=== PATIENT | female | born 1965 | race American Indian/Alaskan Native ===

== ENCOUNTER 2022-07-28 16:55 | Emergency (ER) | payer BC, OTHER ==
[~2022-07-28] VITALS: Ht 162.6 cm; Wt 70.5 kg
[~2022-07-28 16:55] MED LIST: CLOB10TA PO; HYDR-4383 PO; LACO100T2 PO; PANT-47 PO; QUET-1 PO; SERT50TA PO; SYN0.0125T PO; TOP100T PO; TOPI50TA24 PO
[2022-07-28 17:46] LABS: BASOPHILS % (AUTO) 0.1 % (0-1); EOSINOPHILS % (AUTO) 0 % (0-6); HEMATOCRIT 34.1 % (35.0-45.0); HEMOGLOBIN 11.4 g/dl (12.0-16.0); LYMPHOCYTES # (AUTO) 1.1 X10'3 (1.1-4.8); LYMPHOCYTES % (AUTO) 21.6 % (21-51); MEAN CORPUSCULAR HEMOGLOBIN 30.3 PG (27.0-31.0); MEAN CORPUSCULAR HGB CONC 33.3 g/dL (33.0-36.5); MEAN PLATELET VOLUME 9.4 FL (7.4-10.4); MONOCYTES # (AUTO) 0.4 X10'3 (0-0.9); MONOCYTES % (AUTO) 7.6 % (2-12); NEUTROPHILS # (AUTO) 3.7 X10'3 (1.8-7.7); NEUTROPHILS % (AUTO) 70.7 % (42-75); PLATELET COUNT 165 X10'3 (140-440); RED BLOOD COUNT 3.75 X10'6 (4.20-5.60); RED CELL DISTRIBUTION WIDTH 13.5 % (11.5-14.5); WHITE BLOOD COUNT 5.3 X10'3 (4.5-11.0)
[2022-07-28 17:56] LABS: ALANINE AMINOTRANSFERASE 25 U/L (12-78); ALBUMIN 3.8 G/DL (3.4-5.0); ALBUMIN/GLOBULIN RATIO 1.3 (1.1-1.5); ALKALINE PHOSPHATASE 115 IU/L (46-116); ANION GAP 8 (8-16); ASPARTATE AMINO TRANSFERASE 16 U/L (10-37); BILIRUBIN,TOTAL 0.2 MG/DL (0.1-1.0); BLOOD UREA NITROGEN 20 MG/DL (7-18); BUN/CREATININE RATIO 15.2 (6.6-38.0); CHLORIDE 106 MMOL/L (99-107); CREATININE 1.32 MG/DL (0.40-0.90); GLUCOSE 416 MG/DL (70-104); POTASSIUM 4.9 MMOL/L (3.5-5.1); SODIUM 139 MMOL/L (135-145); TOTAL CARBON DIOXIDE 25.2 MMOL/L (24-32); TOTAL PROTEIN 6.7 G/DL (6.4-8.2); eGFR 41 ML/MIN
[2022-07-28] MEDS ORDERED: HYDROcodone/acetaminophen 10/325mg tab PO ONE (19:05)
[2022-07-28] MEDS ORDERED: insulin Lispro (HumaLOG) vial - multi-dose SQ STA (19:17)
[2022-07-28] MEDS ORDERED: insulin regular, human 10 units/0.1 ml syringe SQ ONE (19:25)
[2022-07-28 19:35] VITALS: BP 117/71
== END 2022-07-28 19:41 | disposition home or self-care (01) ==
LOC: ER 16:57
DX: R56.9 Unspecified convulsions (principal); G43.909 Migraine, unspecified, not intractable, without status migrainosus; R07.89 Other chest pain; E11.42 Type 2 diabetes mellitus with diabetic polyneuropathy; E78.00 Pure hypercholesterolemia, unspecified; K21.9 Gastro-esophageal reflux disease without esophagitis; E03.9 Hypothyroidism, unspecified; Z98.890 Other specified postprocedural states; Z79.899 Other long term (current) drug therapy
CPT/HCPCS: 36415; 70450; 71045; 72125; 80053; 85025; 93005; 96372; 99285; J1815

== ENCOUNTER 2023-01-22 21:43 | Inpatient (IN) | payer BC, OTHER ==
[~2023-01-22] VITALS: Ht 162.6 cm; Wt 69.0 kg
[~2023-01-22 21:43] MED LIST changes: +TOPI-253 PO; -TOPI50TA24 PO
[2023-01-22 22:07] LABS: BASOPHILS % (AUTO) 0.1 % (0-1); EOSINOPHILS % (AUTO) 0 % (0-6); HEMATOCRIT 36.1 % (35.0-45.0); HEMOGLOBIN 12.2 g/dl (12.0-16.0); LYMPHOCYTES # (AUTO) 1.3 X10'3 (1.1-4.8); LYMPHOCYTES % (AUTO) 25.5 % (21-51); MEAN CORPUSCULAR HEMOGLOBIN 29.6 PG (27.0-31.0); MEAN CORPUSCULAR HGB CONC 33.7 g/dL (33.0-36.5); MEAN CORPUSCULAR VOLUME 87.9 FL (78-98); MEAN PLATELET VOLUME 8.7 FL (7.4-10.4); MONOCYTES # (AUTO) 0.4 X10'3 (0-0.9); MONOCYTES % (AUTO) 7.3 % (2-12); NEUTROPHILS # (AUTO) 3.5 X10'3 (1.8-7.7); NEUTROPHILS % (AUTO) 67.1 % (42-75); PLATELET COUNT 198 X10'3 (140-440); RED BLOOD COUNT 4.11 X10'6 (4.20-5.60); RED CELL DISTRIBUTION WIDTH 13.9 % (11.5-14.5); WHITE BLOOD COUNT 5.2 X10'3 (4.5-11.0)
[2023-01-22 22:16] LABS: ALANINE AMINOTRANSFERASE 31 U/L (12-78); ALBUMIN 4.1 G/DL (3.4-5.0); ALBUMIN/GLOBULIN RATIO 1.3 (1.1-1.5); ALKALINE PHOSPHATASE 112 IU/L (46-116); ANION GAP 11 (8-16); ASPARTATE AMINO TRANSFERASE 23 U/L (10-37); BILIRUBIN,TOTAL 0.1 MG/DL (0.1-1.0); BLOOD UREA NITROGEN 22 MG/DL (7-18); BUN/CREATININE RATIO 15.9 (10.0-20.0); CALCIUM 9.5 MG/DL (8.5-10.1); CHLORIDE 109 MMOL/L (99-107); CREATININE 1.38 MG/DL (0.40-0.90); GLUCOSE 177 MG/DL (70-104); POTASSIUM 4.4 MMOL/L (3.5-5.1); SODIUM 144 MMOL/L (135-145); TOTAL CARBON DIOXIDE 23.8 MMOL/L (24-32); TOTAL PROTEIN 7.2 G/DL (6.4-8.2); eGFR 39 ML/MIN
[2023-01-23] MEDS ORDERED: aspirin 325mg tablet PO ONE (02:15)
[2023-01-23] MEDS ORDERED: CYAN250010 PO (03:17)
[2023-01-23] MEDS ORDERED: ATOR10TA87 PO (03:17)
[2023-01-23] MEDS ORDERED: ACET-1025 PO (03:17)
[2023-01-23] MEDS ORDERED: LEVO100T PO (03:17)
[2023-01-23] MEDS ORDERED: TRAZ300T2 PO (03:17)
[2023-01-23] MEDS ORDERED: TEMA30CA5 PO (03:17)
[2023-01-23] MEDS ORDERED: CHOL20004 PO (03:17)
[2023-01-23] MEDS ORDERED: LACT1CAP74 PO (03:17)
[2023-01-23] MEDS ORDERED: EMPA10TA PO (03:17)
[2023-01-23] MEDS ORDERED: LAMO100T2 PO (03:17)
[2023-01-23] MEDS ORDERED: LANTUS SQ ×2 (03:42)
[2023-01-23] MEDS ORDERED: SEMA0.258 IM (03:42)
[2023-01-23] MEDS ORDERED: acetaminophen 325mg tablet PO PRN ×2 (04:20)
[2023-01-23] MEDS ORDERED: bisacodyl 10mg suppository rectal RC PRN (04:20)
[2023-01-23] MEDS ORDERED: acetaminophen 650mg rectal suppository RC PRN (04:20)
[2023-01-23] MEDS ORDERED: magnesium hydroxide 30ml (MOM) UD suspension PO PRN (04:20)
[2023-01-23] MEDS ORDERED: diphenhydrAMINE 50 mg/ml inj IV PRN (04:20)
[2023-01-23] MEDS ORDERED: diphenhydrAMINE 25mg capsule PO PRN (04:20)
[2023-01-23] MEDS ORDERED: ondansetron/PF 4mg/2ml inj IV PRN (04:20)
[2023-01-23] MEDS ORDERED: ondansetron 4mg rapidly disintigrating tab PO PRN (04:20)
[2023-01-23] MEDS ORDERED: mag hydrox/Alum hydrox/simeth 30ml oral suspension PO PRN (04:20)
[2023-01-23] MEDS ORDERED: morphine 2 MG/ML inj. syringe IV PRN (04:20)
[2023-01-23] MEDS ORDERED: ringers solution, lacted 1,000 ML IV ONE (04:25)
[2023-01-23] MEDS ORDERED: heparin 10,000 units/1 ML INJ IV ONE (04:25)
[2023-01-23] MEDS ORDERED: heparin 10,000 units/1 ML INJ IV PRN (04:25)
[2023-01-23] MEDS ORDERED: heparin 25,000 UNIT/250ml bag 250 ML IV PRN (04:25)
[2023-01-23] MEDS ORDERED: LORazepam 2 mg/ml vial IV ONE (05:45)
[2023-01-23] MEDS ORDERED: morphine 2 MG/ML inj. syringe IV ONE (05:45)
[2023-01-23 06:23] LABS: APTT 26 SECONDS (22-32); D-DIMER 1.42 MG/L FEU (0-0.50)
[2023-01-23 06:34] LABS: BASOPHILS % (AUTO) 0 % (0-1); EOSINOPHILS % (AUTO) 0 % (0-6); HEMATOCRIT 32.3 % (35.0-45.0); HEMOGLOBIN 10.9 g/dl (12.0-16.0); LYMPHOCYTES # (AUTO) 1.6 X10'3 (1.1-4.8); LYMPHOCYTES % (AUTO) 31.8 % (21-51); MEAN CORPUSCULAR HEMOGLOBIN 29.5 PG (27.0-31.0); MEAN CORPUSCULAR HGB CONC 33.7 g/dL (33.0-36.5); MEAN CORPUSCULAR VOLUME 87.6 FL (78-98); MEAN PLATELET VOLUME 8.7 FL (7.4-10.4); MONOCYTES # (AUTO) 0.4 X10'3 (0-0.9); MONOCYTES % (AUTO) 8.7 % (2-12); NEUTROPHILS # (AUTO) 2.9 X10'3 (1.8-7.7); NEUTROPHILS % (AUTO) 59.5 % (42-75); PLATELET COUNT 174 X10'3 (140-440); RED BLOOD COUNT 3.69 X10'6 (4.20-5.60); RED CELL DISTRIBUTION WIDTH 13.7 % (11.5-14.5); WHITE BLOOD COUNT 4.9 X10'3 (4.5-11.0)
[2023-01-23 06:35] LABS: MAGNESIUM 1.9 MG/DL (1.5-2.4); PHOSPHORUS 4.1 MG/DL (2.3-4.5)
[2023-01-23 07:01] LABS: HEMOGLOBIN A1C 7.1 % (4.5-6.2)
[2023-01-23] MEDS ORDERED: pantoprazole 40mg Tablet.DR PO SCH (07:30)
[2023-01-23] MEDS ORDERED: docusate sod 100mg capsule PO SCH (08:00)
[2023-01-23 08:43] VITALS: BP 121/69; PULSE 55; RESP 15; TEMP 98.2; O2SAT 100
[2023-01-23 09:30] VITALS: RESP 14; O2SAT 100
[2023-01-23] MEDS: aspirin 81mg, enteric-coated 1 TAB TABLET.DR PO SCH (10:08)
[2023-01-23] MEDS: normal saline 1000ml 1,000 ML IV SCH ×2 (10:09→14:20)
[2023-01-23] MEDS: HYDROcodone/acetaminophen 5mg/325mg tablet PO PRN ×2 (11:34→20:47)
[2023-01-23] MEDS ORDERED: glucagon, human recombinant 1mg kit SUBCUT PRN (11:45)
[2023-01-23] MEDS ORDERED: MESSAGE TO PHARMACY PO ONE (11:45)
[2023-01-23] MEDS ORDERED: DEXTROSE 15 GM of carb/4 tabs (each vial/BOTTLE has 4 tablets) PO PRN ×2 (11:45)
[2023-01-23] MEDS ORDERED: insulin Lispro (HumaLOG) vial - multi-dose SQ SCH (11:45)
[2023-01-23] MEDS ORDERED: dextrose 50%-water 50ml dispensing syringe IV PRN ×2 (11:45)
[2023-01-23 11:58] VITALS: BP 105/70; PULSE 55; RESP 10; TEMP 98.4; O2SAT 99
--- NOTE | 2023-01-23 13:35 | NUR ---
DM Consult: Pt admit DX HILARIA, hypovolemia, T2DM A1C 7.1% per EMR. Written DM diet ed w/ RD contact information placed in pt chart due to staffing. Will remain available for any nutrition questions/concerns. Addendum: 01/23/23 at [address] Amended: Links added.
[2023-01-23 14:20] LABS: APTT 105 SECONDS (22-32)
--- NOTE | 2023-01-23 14:33 | NUR ---
Heparin drip dc'ed, no need to call crit lab
[2023-01-23] MEDS ORDERED: aminophylline 250mg/10ml inj. IV PRN (14:45)
[2023-01-23] MEDS ORDERED: regadenoson 0.4mg/5ml syringe IV PRN (14:45)
[2023-01-23] MEDS ORDERED: nitroGLYCERIN 0.4mg SUBLingual tab SL PRN (14:45)
[2023-01-23] MEDS ORDERED: metoprolol tartrate 1mg/ml inj IV PRN (14:45)
[2023-01-23 17:08] VITALS: BP 102/65; PULSE 57; RESP 14; TEMP 98.2; O2SAT 99
--- NOTE | 2023-01-23 17:46 | NUR ---
Problems reprioritized. Patient report given, questions answered & plan of care reviewed with Brielle. Addendum: 01/23/23 at 1746 by Robbi Hylton RN Amended: Links added.
[2023-01-23 18:00] VITALS: BP 116/63; PULSE 57; RESP 16; TEMP 97.9; O2SAT 96
[2023-01-23] MEDS: traZODone 150mg tablet PO SCH (20:47)
[2023-01-23] MEDS: pantoprazole 40mg Tablet.DR PO SCH (20:48)
[2023-01-23] MEDS: lamoTRIgine 100mg tablet PO SCH (20:48)
[2023-01-23] MEDS: topiramate 100mg tablet PO SCH (20:49)
[2023-01-23] MEDS ORDERED: temazepam 15mg capsule PO PRN (21:00)
[2023-01-23] MEDS: insulin glargine (Lantus) pen - multi-dose SQ SCH (21:00)
[2023-01-23 22:00] VITALS: BP 118/68; PULSE 52; RESP 18; TEMP 98.1; O2SAT 95
[2023-01-24] VITALS (28 sets, daily range): BP systolic 99–137; BP diastolic 55–95; PULSE 49–123; RESP 12–32; TEMP 97.6–98.9; O2SAT 95–100
[2023-01-24] MEDS: normal saline 1000ml 1,000 ML IV SCH ×3 (00:20→19:33)
--- NOTE | 2023-01-24 06:12 | NUR ---
Patient in room U 3024. I have received report from Brielle and had the opportunity to ask questions and assume patient care. Addendum: 01/24/23 at 0613 by Robbi Hylton RN Amended: Links added.
[2023-01-24] MEDS: pantoprazole 40mg Tablet.DR PO SCH ×2 (07:09→19:53)
[2023-01-24] MEDS: sertraline 50mg tablet PO SCH (07:09)
[2023-01-24] MEDS: topiramate 100mg tablet PO SCH ×2 (07:09→19:55)
[2023-01-24] MEDS: EMPAGLIFLOZIN 25 MG TABLET PO SCH (07:09)
[2023-01-24] MEDS: lamoTRIgine 100mg tablet PO SCH ×2 (07:09→19:55)
[2023-01-24] MEDS: aspirin 81mg, enteric-coated 1 TAB TABLET.DR PO SCH (07:09)
[2023-01-24] MEDS: lactobacillus rhamnosus 10,000 MMU CELLS/CAPSULE PO SCH (07:09)
[2023-01-24] MEDS: levoTHYROXINE 100mcg tablet PO SCH (07:09)
[2023-01-24 07:22] LABS: BASOPHILS % (AUTO) 0 % (0-1); EOSINOPHILS % (AUTO) 0 % (0-6); HEMATOCRIT 32.8 % (35.0-45.0); LYMPHOCYTES # (AUTO) 1.5 X10'3 (1.1-4.8); MEAN CORPUSCULAR HEMOGLOBIN 29.5 PG (27.0-31.0); MEAN CORPUSCULAR HGB CONC 33.5 g/dL (33.0-36.5); MEAN CORPUSCULAR VOLUME 88.1 FL (78-98); MEAN PLATELET VOLUME 8.8 FL (7.4-10.4); MONOCYTES # (AUTO) 0.4 X10'3 (0-0.9); MONOCYTES % (AUTO) 8.3 % (2-12); NEUTROPHILS # (AUTO) 2.4 X10'3 (1.8-7.7); NEUTROPHILS % (AUTO) 55.7 % (42-75); PLATELET COUNT 172 X10'3 (140-440); RED BLOOD COUNT 3.72 X10'6 (4.20-5.60); RED CELL DISTRIBUTION WIDTH 14.4 % (11.5-14.5); WHITE BLOOD COUNT 4.3 X10'3 (4.5-11.0)
[2023-01-24 07:31] LABS: ALANINE AMINOTRANSFERASE 23 U/L (12-78); ALBUMIN 3.4 G/DL (3.4-5.0); ALBUMIN/GLOBULIN RATIO 1.3 (1.1-1.5); ALKALINE PHOSPHATASE 78 IU/L (46-116); ANION GAP 9 (8-16); ASPARTATE AMINO TRANSFERASE 15 U/L (10-37); BILIRUBIN,TOTAL 0.3 MG/DL (0.1-1.0); BLOOD UREA NITROGEN 18 MG/DL (7-18); BUN/CREATININE RATIO 14.9 (10.0-20.0); CHLORIDE 114 MMOL/L (99-107); CHOL/HDL RATIO 2.6 (0.00-4.99); CHOLESTEROL 137 MG/DL (0-200); CREATININE 1.21 MG/DL (0.40-0.90); GLUCOSE 103 MG/DL (70-104); HDL CHOLESTEROL 53 MG/DL (35-60); LDL CHOLESTEROL 63 MG/DL (50-100); POTASSIUM 4.4 MMOL/L (3.5-5.1); SODIUM 145 MMOL/L (135-145); TOTAL PROTEIN 6.1 G/DL (6.4-8.2); TRIGLYCERIDES 98 MG/DL (20-135); eGFR 46 ML/MIN
[2023-01-24] MEDS ORDERED: atorvastatin 10mg tablet PO SCH (08:00)
--- NOTE | 2023-01-24 08:32 | NUR ---
Paged and spoke with Dr. Ann regarding possible need for a 4th troponin to view trending down. Dr. Ann stated that it was not necessary and to proceed with scheduling stress test. Spoke with Patients primary RN Robbi, who stated that patient has no chest pain, but c/o should pain with movement. Patient has not had any caffeine in 24 hrs and has had nothing to eat since prior to midnight. Nuc med aware and we will proceed with scheduling.
[2023-01-24] MEDS: HYDROcodone/acetaminophen 5mg/325mg tablet PO PRN ×2 (10:47→20:38)
--- NOTE | 2023-01-24 14:01 | NUR ---
Spoke with Dr. Phillips regarding patient having a seizure and chest pain during the stress test. No orders obtained for this patient. Abelardo RN aware of patient and will be place patient in seizure precautions.
--- NOTE | 2023-01-24 15:48 | NUR ---
promotional table spacer promotional table spacer Page Sent promotional table spacer PAGER ID: [phone] MESSAGE: JASON on TELE [phone], THE [facility] REPORT IS AVAILBLE FOR 3024B, THANK YOU. (68 character message out of a maximum of 240) CLOSE [X] SEND ANOTHER PAGE Thank you for visiting [facility] promotional table spacer promotional table spacer
--- NOTE | 2023-01-24 18:05 | NUR ---
PAGER ID: [phone] MESSAGE: KIKI CAMP, [facility], [phone]. RE: [id number] CAN PT. EAT OR IS STILL NPO? THANKS Addendum: 01/24/23 at 1818 by Omar Abreu RN CALLED BACK AND SAID PT. CAN EAT A CARB CONTROLLED DIET
--- NOTE | 2023-01-24 18:27 | NUR ---
Problems reprioritized. Patient report given TO OMAIRA SWANSON, questions answered & plan of care reviewed with .
[2023-01-24] MEDS: traZODone 150mg tablet PO SCH (19:55)
[2023-01-24] MEDS: insulin glargine (Lantus) pen - multi-dose SQ SCH (21:00)
[2023-01-25 02:00] VITALS: BP 113/55; PULSE 54; RESP 13; TEMP 98.7; O2SAT 98
[2023-01-25] MEDS: HYDROcodone/acetaminophen 5mg/325mg tablet PO PRN ×2 (05:24→12:07)
[2023-01-25] MEDS: normal saline 1000ml 1,000 ML IV SCH (05:25)
--- NOTE | 2023-01-25 06:00 | NUR ---
REPORT TAKEN FROM OMAIRA SWANSON.ASSUMED CARE OF PATIENT
--- NOTE | 2023-01-25 06:50 | NUR ---
Pt's report was given to Dannielle
[2023-01-25 07:01] LABS: BASOPHILS % (AUTO) 0 % (0-1); EOSINOPHILS % (AUTO) 0.1 % (0-6); HEMATOCRIT 31.3 % (35.0-45.0); HEMOGLOBIN 10.5 g/dl (12.0-16.0); LYMPHOCYTES # (AUTO) 1.3 X10'3 (1.1-4.8); LYMPHOCYTES % (AUTO) 29.3 % (21-51); MEAN CORPUSCULAR HEMOGLOBIN 29.7 PG (27.0-31.0); MEAN CORPUSCULAR HGB CONC 33.4 g/dL (33.0-36.5); MEAN CORPUSCULAR VOLUME 88.9 FL (78-98); MEAN PLATELET VOLUME 8.6 FL (7.4-10.4); MONOCYTES # (AUTO) 0.3 X10'3 (0-0.9); MONOCYTES % (AUTO) 7.7 % (2-12); NEUTROPHILS # (AUTO) 2.8 X10'3 (1.8-7.7); NEUTROPHILS % (AUTO) 62.9 % (42-75); PLATELET COUNT 158 X10'3 (140-440); RED BLOOD COUNT 3.53 X10'6 (4.20-5.60); RED CELL DISTRIBUTION WIDTH 13.8 % (11.5-14.5); WHITE BLOOD COUNT 4.5 X10'3 (4.5-11.0)
[2023-01-25 07:12] VITALS: BP 106/65; PULSE 57; RESP 17; TEMP 97.3; O2SAT 96
[2023-01-25 07:32] LABS: ALANINE AMINOTRANSFERASE 24 U/L (12-78); ALBUMIN 3.3 G/DL (3.4-5.0); ALBUMIN/GLOBULIN RATIO 1.2 (1.1-1.5); ALKALINE PHOSPHATASE 78 IU/L (46-116); ANION GAP 12 (8-16); ASPARTATE AMINO TRANSFERASE 16 U/L (10-37); BILIRUBIN,TOTAL 0.2 MG/DL (0.1-1.0); BLOOD UREA NITROGEN 18 MG/DL (7-18); BUN/CREATININE RATIO 14.3 (10.0-20.0); CALCIUM 8.6 MG/DL (8.5-10.1); CHLORIDE 111 MMOL/L (99-107); CREATININE 1.26 MG/DL (0.40-0.90); GLUCOSE 112 MG/DL (70-104); POTASSIUM 3.7 MMOL/L (3.5-5.1); SODIUM 143 MMOL/L (135-145); TOTAL CARBON DIOXIDE 20.1 MMOL/L (24-32); eGFR 43 ML/MIN
[2023-01-25] MEDS ORDERED: atorvastatin 20mg tablet PO SCH (08:00)
[2023-01-25] MEDS: aspirin 81mg, enteric-coated 1 TAB TABLET.DR PO SCH (08:14)
[2023-01-25] MEDS: sertraline 50mg tablet PO SCH (08:14)
[2023-01-25] MEDS: EMPAGLIFLOZIN 25 MG TABLET PO SCH (08:14)
[2023-01-25] MEDS: pantoprazole 40mg Tablet.DR PO SCH (08:14)
[2023-01-25] MEDS: lactobacillus rhamnosus 10,000 MMU CELLS/CAPSULE PO SCH (08:14)
[2023-01-25] MEDS: levoTHYROXINE 100mcg tablet PO SCH (08:15)
[2023-01-25] MEDS: lamoTRIgine 100mg tablet PO SCH (08:15)
[2023-01-25] MEDS: topiramate 100mg tablet PO SCH (08:15)
[2023-01-25 08:37] VITALS: BP 105/76; PULSE 76
[2023-01-25] MEDS ORDERED: ATOR20TA66 PO (09:46)
[2023-01-25] MEDS ORDERED: ASPI-1071 PO (09:46)
[2023-01-25 12:07] VITALS: RESP 17
--- NOTE | 2023-01-25 12:16 | NUR ---
PATIENT DISCHARGED HOME. ALL MEDICATIONS SENT TO [facility]. IV REMOVED. TELE REMOVED. PATIENT DENIES ANY OTHER NEEDS TO BE ADDRESSED. VSS. RR EVEN AND UNLABORED. CLEARED BY PT. ALL PAPER WORK SIGNED. ALL PERSONAL BELONGINGS LEFT WITH PATIENT.
--- NOTE | 2023-01-25 12:57 | NUR ---
AGREE WITH BUSINESS RULES ANALYST AM ASSESSMENT
== END 2023-01-25 12:12 | disposition home or self-care (01) | DRG 280 ==
LOC: ER 21:44 → ED HOLD 01-23 04:23 → PCU 3S 01-23 08:23
PROVIDERS: ADMIT Family Medicine; ATTEND Internal Medicine
PROC: 4A02XM4 Measurement of Cardiac Total Activity, External Approach (ICD-10-PCS; principal; 2023-01-24)
PROC: 3E073KZ Introduction of Other Diagnostic Substance into Coronary Artery, Percutaneous Approach (ICD-10-PCS; 2023-01-24)
DX: R07.89 Other chest pain (principal); I21.A1 Myocardial infarction type 2; I50.33 Acute on chronic diastolic (congestive) heart failure; N17.9 Acute kidney failure, unspecified; E11.22 Type 2 diabetes mellitus with diabetic chronic kidney disease; E11.42 Type 2 diabetes mellitus with diabetic polyneuropathy; E11.65 Type 2 diabetes mellitus with hyperglycemia; E78.00 Pure hypercholesterolemia, unspecified; E86.1 Hypovolemia; E89.0 Postprocedural hypothyroidism; I95.9 Hypotension, unspecified; M54.2 Cervicalgia; R00.1 Bradycardia, unspecified; F32.A Depression, unspecified; G40.909 Epilepsy, unspecified, not intractable, without status epilepticus; G43.909 Migraine, unspecified, not intractable, without status migrainosus; K21.9 Gastro-esophageal reflux disease without esophagitis; M25.512 Pain in left shoulder; N18.30 Chronic kidney disease, stage 3 unspecified; Z79.82 Long term (current) use of aspirin; Z79.899 Other long term (current) drug therapy; Z82.49 Family history of ischemic heart disease and other diseases of the circulatory system; Z85.850 Personal history of malignant neoplasm of thyroid; Z79.890 Hormone replacement therapy
CPT/HCPCS: 36415; 71045; 78452; 80053; 80061; 82948; 83036; 83735; 83880; 83930; 84100; 84443; 84484; 85025; 85379; 85610; 85730; 87081; 93005; 93017; 93306; 99285; A9500; G0378; J1644; J1815; J2785; J7030; J7120

== ENCOUNTER 2024-05-25 11:15 | Outpatient (CLI) | payer BC, OTHER ==
[~2024-05-25 11:15] MED LIST changes: +ACET-1025 PO; +ASPI-1071 PO; +ATOR20TA66 PO; +CHOL20004 PO; -CLOB10TA PO; +CYAN250010 PO; +EMPA10TA PO; -HYDR-4383 PO; -LACO100T2 PO; +LACT1CAP74 PO; +LAMO100T2 PO; +LANTUS SQ; +LEVO100T PO; -QUET-1 PO; +SEMA0.258 IM; -SYN0.0125T PO; +TEMA30CA5 PO; -TOPI-253 PO; +TRAZ300T2 PO
== END 2024-05-25 23:59 | disposition home or self-care (01) ==
LOC: RAD 11:15
PROVIDERS: ATTEND Nurse Practitioner Acute Care
DX: R13.10 Dysphagia, unspecified (principal); Z79.82 Long term (current) use of aspirin; Z79.890 Hormone replacement therapy; Z79.899 Other long term (current) drug therapy; Z98.1 Arthrodesis status
CPT/HCPCS: 74230